=== PATIENT | female | born 1995 | race Caucasian/White ===

== ENCOUNTER 2017-02-28 20:16 | Emergency (ER) | payer OTHER ==
[~2017-02-28] VITALS: Ht 177.8 cm; Wt 86.4 kg
[~2017-02-28 20:16] MED LIST: ALLEGRA-D 24HOU1 T24 PO; AMOXICILLIN 50500 MG PO; BACTRIM DS 8001 TAB PO; CELEBREX50 MG PO; CEPHALEXIN500 M1 PO; DUO-KAPS1 CAP PO; FAMVIR250 MG PO; GENTAMICIN EYE D5 ML OS; MOTRIN 800800 MG/TAB PO; MOTRIN800 MG PO; MULTIPLE VITAMI1 CAP PO; NO HOME MEDICATIONS; NORCO 325 MG-51 TAB PO; PHENERGAN 25 TA25 MG PO; PHENERGAN W/CO120 M1 PO; SEASONIQUE1 TAB; ZYRTEC-D 5 MG-11 TER PO; [UNRECOGNIZED DRUG - OTHER] TP
[2017-02-28 20:17] VITALS: TEMP 99.2
[2017-02-28] MEDS ORDERED: LOESTRIN1.5/30 21DAY PO (20:20)
[2017-02-28] MEDS ORDERED: MOTRIN 800800 MG/TAB PO (21:13)
[2017-02-28 21:31] VITALS: BP 117/70; PULSE 99
== END 2017-02-28 21:25 | disposition home or self-care (01) ==
LOC: COL.ER 20:16
DX: S86.911A Strain of unspecified muscle(s) and tendon(s) at lower leg level, right leg, initial encounter (principal); X50.1XXA Overexertion from prolonged static or awkward postures, initial encounter; Y92.39 Other specified sports and athletic area as the place of occurrence of the external cause
CPT/HCPCS: L1830